=== PATIENT | male | born 1985 | race Caucasian/White ===

== ENCOUNTER 2018-02-23 15:05 | Emergency (ER) | payer MEDICAID ==
[~2018-02-23] VITALS: Ht 188 cm; Wt 95.3 kg
[2018-02-23 15:09] VITALS: BP_SYST 153
[2018-02-23] MEDS: IBUPROFEN 800 MG TABLET PO ONE (15:43)
[2018-02-23] MEDS: DIPH-TET-PERTUS Vaccine 0.5 ML VIAL (ADACEL) I.M. ONE (16:12)
[2018-02-23 16:15] VITALS: BP_SYST 153
[2018-02-23] MEDS: LIDOCAINE 1% 10 MG/ML, 20 ML MDV INJ ONE (16:25)
[2018-02-23] MEDS: BACITRACIN 1 GM OINT TP ONE (16:34)
== END 2018-02-23 16:15 | disposition home or self-care (01) ==
LOC: SED 15:05
DX: S61.211A Laceration without foreign body of left index finger without damage to nail, initial encounter (principal); R03.0 Elevated blood-pressure reading, without diagnosis of hypertension; F17.210 Nicotine dependence, cigarettes, uncomplicated; Z71.6 Tobacco abuse counseling; W26.8XXA Contact with other sharp object(s), not elsewhere classified, initial encounter; Y93.89 Activity, other specified; Y92.89 Other specified places as the place of occurrence of the external cause; Y99.8 Other external cause status
CPT/HCPCS: 12001; 90471; 90715; 99283; J2001